=== PATIENT | male | born 2000 | race Caucasian/White ===

== ENCOUNTER 2018-06-12 21:04 | Emergency (ER) | payer OTHER ==
[2018-06-12 21:14] VITALS: BP 138/98; PULSE 90; TEMP 98.4; BMI 33.5
--- NOTE | 2018-06-12 21:27 | PDOC ---
History of Present Illness - General History Source: Patient Exam Limitations: No Limitations - History of Present Illness Initial Comments: 06/12/18 22:02 The patient is a 17-year-old male with a past medical history significant for osteochondritis dissecans of the right knee presents to the emergency department with a right knee injury. The patient reports around 8:00 pm today, he was playing basketball, when his right knee suddenly buckled, and he felt a pop. The patient reports he immediately fell to the ground, with difficulty getting up. The patient indicated the joint began to swell, with difficulty moving the joint. The patient reports the pain feels like hes being stabbed on the knee. Denies numbness, tingling or loss of sensation. Allergies: NKDA, shellfish. Surgical history: RKA, drilling OCD lesion, meniscal repair by Dr. Maldonado. PCP: None reported. <Lorena Raza - Last Filed: 06/12/18 22:12> <Herminia Mckinley - Last Filed: 06/12/18 23:47> - General Chief Complaint: Injury Stated Complaint: RT KNEE PAIN Time Seen by Provider: 06/12/18 21:18 Past History <Lorena Raza - Last Filed: 06/12/18 22:12> - Past Medical History Anemia: No Asthma: No Cancer: No Cardiac Disorders: No CVA: No COPD: No CHF: No Dementia: No Diabetes: No GI Disorders: No Disorders: No HTN: No Hypercholesterolemia: No Liver Disease: No Seizures: No Thyroid Disease: No - Surgical History Abdominal Surgery: No Appendectomy: No Cardiac Surgery: No Cholecystectomy: No Lung Surgery: No Neurologic Surgery: No Orthopedic Surgery: No - Suicide/Smoking/Psychosocial Hx Smoking History: Never smoked Have you smoked in the past 12 months: No Hx Alcohol Use: No Drug/Substance Use Hx: No Substance Use Type: None Hx Substance Use Treatment: No <Herminia Mckinley - Last Filed: 06/12/18 23:47> - Past Medical History Allergies/Adverse Reactions: Allergies Allergy/AdvReac Type Severity Reaction Status Date / Time No Known Drug Allergies Allergy Verified 09/14/14 21:18 FISH STICKS Allergy Mild MOUTH Uncoded 02/05/14 08:54 TINGLING Home Medications: Ambulatory Orders NK [No Known Home Medication] 09/14/14 Review of Systems - Review of Systems Able to Perform ROS?: Yes Comments:: 06/12/18 22:02 CONSTITUTIONAL: Absent: fever, no chills, no fatigue EYES: Absent: visual changes ENT: Absent: ear pain, no sore throat CARDIOVASCULAR: Absent: chest pain, no palpitations RESPIRATORY: Absent: cough, no SOB GI: Absent: abdominal pain, no nausea, no vomiting, no constipation, no diarrhea GENITOURINARY: Absent: dysuria, no frequency, no hematuria MUSKULOSKELETAL: +right knee pain with swelling. Absent: back pain, no arthralgia, no myalgia SKIN: Absent: rash NEURO: Absent: headache <Lorena Raza - Last Filed: 06/12/18 22:12> *Physical Exam - Vital Signs Last Vital Signs Temp Pulse Resp BP Pulse Ox 98.4 F 90 12 138/98 98 06/12/18 21:09 06/12/18 21:09 06/12/18 21:09 06/12/18 21:09 06/12/18 21:09 - Physical Exam Comments: 06/12/18 22:08 GENERAL: The patient is awake, alert, and fully oriented, in no acute distress. HEAD:Normal with no signs of trauma. EYES: Pupils equal, round and reactive to light, extraocular movements intact, sclera anicteric, conjunctiva clear. EXTREMITIES: +right knee swelling greater than left, tenderness to palpation of the lateral aspect of the knee more than the medical aspect, decreased range of motion in flexion with ability to 30 degrees. And extension limited by pain. No bruising, redness or open region. Negative anterior and posterior drawer test. instability noted with the valgus test. NEUROLOGICAL: Normal speech. PSYCH: Normal mood, normal affect. SKIN: Warm, Dry, normal turgor, no rashes or lesions noted. <Lorena Raza - Last Filed: 06/12/18 22:12> - Vital Signs Last Vital Signs Temp Pulse Resp BP Pulse Ox 98.4 F 90 12 138/98 98 06/12/18 21:09 06/12/18 21:09 06/12/18 21:09 06/12/18 21:09 06/12/18 21:09 <Herminia Mckinley - Last Filed: 06/12/18 23:47> Progress Note - Progress Note Progress Note: Documentation has been prepared under my direction and personally reviewed by me in its entirety. I attest that this documented accurately reflects all work, treatment, procedures and medical decision making performed by me. <Herminia Mckinley - Last Filed: 06/12/18 23:47> Medical Decision Making - Medical Decision Making As noted above, this 17-year-old man with a history of right knee osteochondritis dissecans (and history of right knee arthroscopy/meniscal repair in 2013 by ) presents with history of right knee injury which occurred while playing basketball just prior to presentation. Patient describes running backwards and feeling sudden instability/buckling in the right knee. He also describes hearing a "pop" with subsequent pain. Patient fell at this point but did not feel that he injured any other area of his body. No LOC or head/neck impact. Exam as noted. 3 position right knee x-ray performed and interpreted by of the radiology staff: Soft tissue calcification seen both anteriorly and posteriorly proximal to the knee joint but no fracture or dislocation noted. Clinical presentation most consistent with right knee sprain, likely moderate to severe in degree. Knee immobilizer placed. The patient advised to ice and elevate his knee as much as possible the next 48 hours and use crutches for ambulation until seen by his orthopedist. He should call his orthopedist in the morning and arrange follow-up as soon as possible. 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 Patient given work documentation for the next week. He describes relief of some of his post injury pain with ibuprofen; he should continue to use this (taking with food) as needed <Herminia Mckinley - Last Filed: 06/12/18 23:47> *DC/Admit/Observation/Transfer - Attestations Scribe Attestion: 06/12/18 22:03 Documentation prepared by Lorena Raza, acting as medical records analyst for Herminia Mckinley MD. <Lorena Raza - Last Filed: 06/12/18 22:12> <Herminia Mckinley - Last Filed: 06/12/18 23:47> Diagnosis at time of Disposition: Knee sprain Qualifiers: Encounter type: initial encounter Involved ligament of knee: medial collateral ligament Laterality: right Qualified Code(s): S83.411A - Sprain of medial collateral ligament of right knee, initial encounter - Discharge Dispostion Disposition: HOME Condition at time of disposition: Stable - Referrals Referrals: Jamie Maldonado MD [Staff Physician] - Call tomorrow - Patient Instructions Printed Discharge Instructions: Knee Sprain Additional Instructions: Ice/elevation of right knee is much as possible until seen by your orthopedist Knee immobilizer in place when up and around Crutches for ambulation until seen by orthopedics Ibuprofen/naproxen/acetaminophen as needed for pain No work until evaluation by orthopedist Call office in the morning and arrange an evaluation at next available opportunity - Post Discharge Activity Forms/Work/School Notes: Back to Work
== END 2018-06-12 22:22 | disposition home or self-care (01) ==
LOC: FER 21:04
PROC: 2W3QX1Z Immobilization of Right Lower Leg using Splint (ICD-10-PCS; principal; 2018-06-12)
DX: S83.411A Sprain of medial collateral ligament of right knee, initial encounter (principal); X58.XXXA Exposure to other specified factors, initial encounter; Y93.67 Activity, basketball; Y92.310 Basketball court as the place of occurrence of the external cause; M93.261 Osteochondritis dissecans, right knee
CPT/HCPCS: 73562-TC-RT-FY; 99281-25